=== PATIENT | female | born 1995 | race American Indian/Alaskan Native ===

== ENCOUNTER 2018-05-06 19:59 | Emergency (ER) | payer MEDICAID ==
[2018-05-06] MEDS ORDERED: DUONEB *Not for PRN Use IH ONE (20:13)
[2018-05-06 21:13] LABS: BUN/Creatinine Ratio 6; Blood Urea Nitrogen 5 mg/dL (7-17); Calcium 9.4 mg/dL (8.4-10.2); Hemolysis Index 0
[2018-05-06 21:16] LABS: Basophils # (Auto) 0.1 K/mm3 (0.0-0.1); Basophils % (Auto) 0.5 % (0.0-1.8); Eosinophils # (Auto) 0.1 K/mm3 (0.0-0.4); Eosinophils % (Auto) 0.7 % (0.0-4.3); Hematocrit 40.9 % (30.3-42.9); Hemoglobin 13.5 gm/dl (10.1-14.3); Lymphocytes # (Auto) 2.7 K/mm3 (1.2-5.4); Lymphocytes % (Auto) 16.4 % (13.4-35.0); Mean Corpuscular HGB Conc 33 % (30-34); Mean Corpuscular Hemoglobin 28 pg (28-32); Mean Corpuscular Volume 85 fl (79-97); Monocytes # (Auto) 1.9 K/mm3 (0.0-0.8); Monocytes % (Auto) 11.5 % (0.0-7.3); Platelet Count 352 K/mm3 (140-440); Red Cell Distribution Width 14.5 % (13.2-15.2)
[2018-05-06] MEDS ORDERED: XOPENEX IH ONE (21:33)
[2018-05-06] MEDS ORDERED: LEVAQUIN 750MG/150ML 750 MG/150 ML BAG IV ONE (21:33)
--- NOTE | 2018-05-06 21:41 | Emergency Department Report ---
ED Shortness of Breath HPI - General Chief Complaint: Dyspnea/Respdistress Stated Complaint: CHEST PAIN, YONG Time Seen by Provider: 05/06/18 21:21 Source: patient Mode of arrival: Ambulatory Limitations: No Limitations - History of Present Illness Initial Comments: Patient is 22 years old female history of asthma. Patient presented to the ER complaining of shortness of breath and wheezing for the last 2 weeks associated with his productive cough with greenish sputum and a low-grade fever. Patient denied any nausea or vomiting. No other complaint at this moment. MD Complaint: shortness of breath, cough - Related Data Allergies Allergy/AdvReac Type Severity Reaction Status Date / Time No Known Allergies Allergy Verified 05/06/18 20:07 ED Review of Systems ROS: Stated complaint: CHEST PAIN, YONG Other details as noted in HPI Comment: All other systems reviewed and negative Constitutional: fever. denies: chills Respiratory: cough, shortness of breath, SOB with exertion, wheezing Cardiovascular: chest pain. denies: palpitations, dyspnea on exertion, orthopnea Gastrointestinal: denies: abdominal pain, nausea, vomiting Neurological: denies: headache, weakness, numbness, paresthesias, confusion ED Past Medical Hx - Past Medical History Hx Asthma: Yes - Social History Smoking Status: Never Smoker Substance Use Type: None ED Physical Exam - General Limitations: No Limitations General appearance: alert, in distress (moderate respiratory distress) - Head Head exam: Present: atraumatic - Eye Eye exam: Present: normal appearance - ENT ENT exam: Present: normal exam, normal orophraynx, mucous membranes moist - Neck Neck exam: Present: normal inspection, full ROM. Absent: tenderness, meningismus, lymphadenopathy, thyromegaly - Respiratory Respiratory exam: Present: wheezes, rales, rhonchi, decreased breath sounds, prolonged expiratory - Cardiovascular Cardiovascular Exam: Present: tachycardia - GI/Abdominal GI/Abdominal exam: Present: soft, normal bowel sounds. Absent: distended, tenderness, guarding, rebound, rigid, organomegaly, mass, bruit, pulsatile mass , hernia - Extremities Exam Extremities exam: Present: normal inspection, full ROM, normal capillary refill - Back Exam Back exam: Present: normal inspection, full ROM. Absent: tenderness, CVA tenderness (L), muscle spasm, paraspinal tenderness, vertebral tenderness - Neurological Exam Neurological exam: Present: alert, oriented X3, CN II-XII intact, normal gait - Skin Skin exam: Present: dry, intact, normal color ED Course Vital Signs 05/06/18 05/06/18 05/06/18 19:58 20:07 21:27 Temperature 99.9 F H 99.9 F H Pulse Rate 129 H 120 H 103 H Pulse Rate [ Posterior] Respiratory 22 22 27 H Rate Respiratory Rate [Posterior ] Blood Pressure 114/87 114/87 Blood Pressure 120/91 [Left] O2 Sat by Pulse 92 92 96 Oximetry 05/06/18 05/06/18 05/06/18 21:30 21:45 22:00 Temperature Pulse Rate 102 H 106 H 99 H Pulse Rate [ 109 H Posterior] Respiratory 21 36 H 25 H Rate Respiratory 20 Rate [Posterior ] Blood Pressure 129/84 122/79 126/80 Blood Pressure [Left] O2 Sat by Pulse 97 95 96 Oximetry 05/06/18 05/06/18 05/06/18 22:15 22:30 22:45 Temperature Pulse Rate 106 H 116 H 116 H Pulse Rate [ Posterior] Respiratory 33 H 28 H 21 Rate Respiratory Rate [Posterior ] Blood Pressure 127/76 124/73 124/73 Blood Pressure [Left] O2 Sat by Pulse 95 97 95 Oximetry 05/06/18 05/06/18 05/06/18 23:00 23:15 23:30 Temperature Pulse Rate 113 H 111 H 110 H Pulse Rate [ Posterior] Respiratory 19 24 23 Rate Respiratory Rate [Posterior ] Blood Pressure 133/79 140/86 126/84 Blood Pressure [Left] O2 Sat by Pulse 97 97 99 Oximetry 05/07/18 05/07/18 05/07/18 00:00 00:15 00:30 Temperature Pulse Rate 112 H 104 H Pulse Rate [ Posterior] Respiratory 28 H 25 H Rate Respiratory Rate [Posterior ] Blood Pressure 129/84 125/76 129/77 Blood Pressure [Left] O2 Sat by Pulse 98 93 94 Oximetry 05/07/18 05/07/18 05/07/18 00:45 01:00 01:15 Temperature Pulse Rate 107 H 115 H 103 H Pulse Rate [ Posterior] Respiratory Rate Respiratory Rate [Posterior ] Blood Pressure 123/66 133/74 117/86 Blood Pressure [Left] O2 Sat by Pulse 94 96 96 Oximetry 05/07/18 05/07/18 05/07/18 01:30 01:45 02:01 Temperature Pulse Rate 99 H 105 H 96 H Pulse Rate [ Posterior] Respiratory Rate Respiratory Rate [Posterior ] Blood Pressure 112/67 114/69 114/69 Blood Pressure [Left] O2 Sat by Pulse 97 96 96 Oximetry - Reevaluation(s) Reevaluation #1: 05/07/18 02:58 Condition stated that she is feeling much better. No wheezing or shortness of breath. ED Medical Decision Making - Lab Data Result diagrams: 05/06/18 20:26 05/06/18 20:26 - EKG Data -: EKG Interpreted by Ks EKG shows normal: sinus rhythm Rate: tachycardia - EKG Data Interpretation: no acute changes - Radiology Data Radiology results: report reviewed Referring Physician: GEORGE JARVIS Patient Name: FADIA CUMMINS Date of : 1995 Sex: Female Report Date: 2018-05-06 Report Status: [place] [address] XRay Report Signed Patient: FADIA CUMMINS MR#: [id number] : 1995 Acct:[id number] Age/Sex: 22 / F ADM Date: 05/06/18 Loc: ED Attending Dr: Ordering Physician: GEORGE JARVIS Date of Service: 05/06/18 Procedure(s): XR chest routine 2V Accession Number(s): [id number] cc: GEORGE JARVIS Fluoro Time In Minutes: FINAL REPORT PROCEDURE: XR CHEST ROUTINE 2V TECHNIQUE: PA and lateral chest radiographs were obtained. CPT 33048 HISTORY: Shortness of breath COMPARISON: No prior studies are available for comparison. FINDINGS: Heart: Normal. Mediastinum/Vessels: Normal. Lungs/Pleural space: Normal. Bony thorax: No acute osseous abnormality. Other: IMPRESSION: Normal examination. Transcribed By: [facility] [place] Dictated By: KATERINE LI Electronically Authenticated By: KATERINE LI Signed Date/Time: 05/06/182221 DD/ 21 TD/TT: 05/06/182221 Critical care attestation.: If time is entered above; I have spent that time in minutes in the direct care of this critically ill patient, excluding procedure time. ED Disposition Clinical Impression: Asthmatic bronchitis, Shortness of breath, Hypokalemia Disposition: -01 TO HOME OR SELFCARE Is pt being admited?: No Condition: Stable Instructions: Chronic Bronchitis (ED) Referrals: PRIMARY CARE, [Primary Care Provider] - 3-5 Days
--- NOTE | 2018-05-06 22:27 | XRay Report ---
FINAL REPORT PROCEDURE: XR CHEST ROUTINE 2V TECHNIQUE: PA and lateral chest radiographs were obtained. CPT 83497 HISTORY: Shortness of breath COMPARISON: No prior studies are available for comparison. FINDINGS: Heart: Normal. Mediastinum/Vessels: Normal. Lungs/Pleural space: Normal. Bony thorax: No acute osseous abnormality. Other: IMPRESSION: Normal examination.
[2018-05-06] MEDS ORDERED: KCL 10MEQ/100ML 10 MEQ/100 ML BAG IV ONE (22:34)
[2018-05-07] MEDS ORDERED: NACL 0.9% 500 ML 500 ML ONE (00:07)
[2018-05-07] MEDS ORDERED: NACL 0.9% 500 ML 500 ML IV ONE (00:21)
[2018-05-07] MEDS: KCL 10MEQ/100ML 10 MEQ/100 ML BAG IV SCH ×2 (00:21→01:06)
[2018-05-07] MEDS ORDERED: NACL 0.9% 1000 ML 1,000 ML IV ONE (01:07)
[2018-05-07 03:12] VITALS: BP 116/78
== END 2018-05-07 03:12 | disposition home or self-care (01) ==
LOC: ED 19:59
DX: J45.909 Unspecified asthma, uncomplicated (principal); E87.5 Hyperkalemia
CPT/HCPCS: 36415; 71046; 80048; 84484; 84703; 85025; 87040; 93005; 93010; 94640; 96361; 96365; 96368; 96375; 99284; J1956; J2930; J3480; J7030; J7040

== ENCOUNTER 2018-08-01 09:58 | Emergency (ER) | payer MEDICAID ==
[2018-08-01 10:20] VITALS: BP 126/93
--- NOTE | 2018-08-01 11:01 | Emergency Department Report ---
ED Chest Pain HPI - General Chief Complaint: Chest Pain Stated Complaint: CHEST PAIN Time Seen by Provider: 08/01/18 10:51 Source: patient Mode of arrival: Ambulatory Limitations: No Limitations - History of Present Illness Initial Comments: Jaquelin is a 23 yo female with hx of asthma. Has had intermittent sharp chest pain for 2 weeks. Wanted to make sure her potassium level was okay. No pain now. Complaint: chest pain -: Gradual, week(s) (2) Onset: during rest Pain Location: substernal, left chest Pain Radiation: none Severity: mild Quality: sharp Consistency: intermittent, now resolved Improves With: nothing Worsens With: nothing Context: recent illness (seen in May with hypokalemia) - Related Data Previous Rx's Medication Instructions Recorded Last Taken Type ALBUTEROL Inhaler (OR & NICU) 2 puff IH QID PRN #1 inhalation 05/07/18 Unknown Rx [ProAir HFA Inhaler] Potassium Chloride [K-Dur] 10 meq PO QDAY #5 tablet 05/07/18 Unknown Rx Prednisone [predniSONE 10 mg 10 mg PO .TAPER #1 tab.ds.pk 05/07/18 Unknown Rx (6-Day Pack, 21 Tabs)] levoFLOXacin [Levaquin TAB] 500 mg PO QDAY #6 tablet 05/07/18 Unknown Rx Allergies Allergy/AdvReac Type Severity Reaction Status Date / Time No Known Allergies Allergy Verified 08/01/18 10:20 Heart Score - HEART Score History: Slightly suspicious EKG: Normal Age: < 45 Risk factors: No known risk factors Troponin: < normal limit HEART Score: 0 ED Review of Systems ROS: Stated complaint: CHEST PAIN Other details as noted in HPI Comment: All other systems reviewed and negative Constitutional: denies: fever, malaise Cardiovascular: chest pain. denies: palpitations ED Past Medical Hx - Past Medical History Previous Medical History?: Yes Hx Asthma: Yes - Surgical History Past Surgical History?: No - Social History Smoking Status: Never Smoker Substance Use Type: Alcohol - Medications Home Medications: Home Medications Medication Instructions Recorded Confirmed Last Taken Type ALBUTEROL Inhaler (OR & NICU) 2 puff IH QID PRN #1 inhalation 05/07/18 Unknown Rx [ProAir HFA Inhaler] Potassium Chloride [K-Dur] 10 meq PO QDAY #5 tablet 05/07/18 Unknown Rx Prednisone [predniSONE 10 mg 10 mg PO .TAPER #1 tab.ds.pk 05/07/18 Unknown Rx (6-Day Pack, 21 Tabs)] levoFLOXacin [Levaquin TAB] 500 mg PO QDAY #6 tablet 05/07/18 Unknown Rx ED Physical Exam - General Limitations: No Limitations General appearance: alert, in no apparent distress - Head Head exam: Present: atraumatic, normocephalic - Eye Eye exam: Present: normal appearance - ENT ENT exam: Present: mucous membranes moist - Neck Neck exam: Present: normal inspection. Absent: tenderness, meningismus - Respiratory Respiratory exam: Present: normal lung sounds bilaterally. Absent: respiratory distress, wheezes, rales, rhonchi - Cardiovascular Cardiovascular Exam: Present: regular rate, normal rhythm, normal heart sounds. Absent: bradycardia, tachycardia, systolic murmur, diastolic murmur, rubs, gallop - GI/Abdominal GI/Abdominal exam: Present: soft, normal bowel sounds. Absent: distended, tenderness, guarding, rebound - Extremities Exam Extremities exam: Present: normal inspection - Back Exam Back exam: Present: normal inspection - Neurological Exam Neurological exam: Present: alert, oriented X3 - Psychiatric Psychiatric exam: Present: normal affect, normal mood - Skin Skin exam: Present: warm, dry, intact, normal color. Absent: rash ED Course Vital Signs 08/01/18 10:18 Temperature 98.1 F Pulse Rate 65 Respiratory 18 Rate Blood Pressure 126/93 O2 Sat by Pulse 100 Oximetry ED Medical Decision Making - EKG Data -: EKG Interpreted by Me EKG shows normal: sinus rhythm, axis, intervals, QRS complexes, ST-T waves Rate: normal - EKG Data Interpretation: normal EKG 08/01/18 10:57 rate 60 bpm no signs of pericarditis - Medical Decision Making Ms. Juarez presents with sharp intermittent chest pain suggestive of ectopy such as PVCs ro chest wall pain. No indication of PNA, PE, PTX, ACS. PERC negative. Normal EKG with HR 60 bpm. I reviewed EMR and ED documentation from previous ED encounter May. Patient was being treated from asthma and fever. Receiving bronchodilator therapy with potassium level 2.7. Patient is currently symptom free. She just needed access for follow up. Urgent care center would not accept her insurance. I highly recommended full physical at our local clinic. I provided referral and potassium diet. Critical care attestation.: If time is entered above; I have spent that time in minutes in the direct care of this critically ill patient, excluding procedure time. ED Disposition Clinical Impression: Chest pain, Hx of hypokalemia Disposition: TO HOME OR SELFCARE Is pt being admited?: No Does the pt Need Aspirin: No Condition: Stable Instructions: Chest Pain (ED), Potassium Content of Foods List (ED), Hypokalemia (ED) Referrals: [facility] [Outside] - 3-5 Days Time of Disposition: 11:01
== END 2018-08-01 11:10 | disposition home or self-care (01) ==
LOC: ED 09:58
DX: R07.89 Other chest pain (principal); J45.909 Unspecified asthma, uncomplicated
CPT/HCPCS: 93005; 93010; 99282

== ENCOUNTER 2019-08-06 18:32 | Emergency (ER) | payer SELFPAY ==
--- NOTE | 2019-08-06 18:48 | Emergency Department Report ---
ED Abdominal Pain HPI - General Chief Complaint: Dyspnea/Respdistress Stated Complaint: SOB/YONG/DIRRHEA Source: patient Mode of arrival: Ambulatory Limitations: No Limitations - History of Present Illness Initial Comments: 24yo female states that she has diarrhea, SOB and chest discomfort x 2 days. She further states that she has a history of Asthma. - Related Data Previous Rx's Medication Instructions Recorded Last Taken Type ALBUTEROL Inhaler (OR & NICU) 2 puff IH QID PRN #1 inhalation 05/07/18 Unknown Rx [ProAir HFA Inhaler] Potassium Chloride [K-Dur] 10 meq PO QDAY #5 tablet 05/07/18 Unknown Rx Prednisone [predniSONE 10 mg 10 mg PO .TAPER #1 tab.ds.pk 05/07/18 Unknown Rx (6-Day Pack, 21 Tabs)] levoFLOXacin [Levaquin TAB] 500 mg PO QDAY #6 tablet 05/07/18 Unknown Rx Allergies Allergy/AdvReac Type Severity Reaction Status Date / Time No Known Allergies Allergy Verified 08/01/18 10:20 ED Review of Systems ROS: Stated complaint: SOB/YONG/DIRRHEA Other details as noted in HPI ED Past Medical Hx - Past Medical History Hx Asthma: Yes - Surgical History Past Surgical History?: No - Social History Smoking Status: Never Smoker Substance Use Type: Alcohol - Medications Home Medications: Home Medications Medication Instructions Recorded Confirmed Last Taken Type ALBUTEROL Inhaler (OR & NICU) 2 puff IH QID PRN #1 inhalation 05/07/18 Unknown Rx [ProAir HFA Inhaler] Potassium Chloride [K-Dur] 10 meq PO QDAY #5 tablet 05/07/18 Unknown Rx Prednisone [predniSONE 10 mg 10 mg PO .TAPER #1 tab.ds.pk 05/07/18 Unknown Rx (6-Day Pack, 21 Tabs)] levoFLOXacin [Levaquin TAB] 500 mg PO QDAY #6 tablet 05/07/18 Unknown Rx ED Physical Exam - General Limitations: No Limitations Critical care attestation.: If time is entered above; I have spent that time in minutes in the direct care of this critically ill patient, excluding procedure time. ED Disposition Condition: Stable
[2019-08-06 20:00] LABS: Basophils # (Auto) 0.1 K/mm3 (0.0-0.1); Basophils % (Auto) 0.4 % (0.0-1.8); Hematocrit 39.4 % (30.3-42.9); Hemoglobin 13.3 gm/dl (10.1-14.3); Lymphocytes # (Auto) 1.5 K/mm3 (1.2-5.4); Lymphocytes % (Auto) 9.6 % (13.4-35.0); Mean Corpuscular HGB Conc 34 % (30-34); Mean Corpuscular Volume 85 fl (79-97); Monocytes # (Auto) 1.7 K/mm3 (0.0-0.8); Monocytes % (Auto) 10.4 % (0.0-7.3); Platelet Count 220 K/mm3 (140-440); Red Blood Count 4.64 M/mm3 (3.65-5.03); Red Cell Distribution Width 14.3 % (13.2-15.2)
[2019-08-06] MEDS ORDERED: SODIUM CHLORIDE 0.9% 1000 ML 1,000 ML IV ONE (20:05)
[2019-08-06] MEDS ORDERED: methylPREDNISolone Sod Succinate 125 MG/2 ML INJ IV ONE (20:05)
[2019-08-06] MEDS ORDERED: IPRATROPIUM/ALBUTEROL SULFATE 3 ML AMPUL.NEB IH ONE (20:05)
[2019-08-06] MEDS ORDERED: ACETAMINOPHEN 500 MG TAB PO ONE (20:05)
[2019-08-06] MEDS ORDERED: IBUPROFEN 600 MG TAB PO ONE (20:06)
[2019-08-06 20:44] LABS: Amorphous Crystals,Urine Few; Bilirubin,Urine NEG (Negative); Blood,Urine SM (Negative); Color,Urine Amber (Yellow); Granular Casts,Urine 14 /LPF; Mucus,Urine 1+ /HPF; Protein,Urine >500 mg/dL (Negative); Urobilinogen,Urine < 2.0 mg/dL (<2.0)
[2019-08-06 21:05] LABS: Alanine Aminotransferase 22 units/L (7-56); Albumin 4.3 g/dL (3.9-5); BUN/Creatinine Ratio 5; Blood Urea Nitrogen 4 mg/dL (7-17); Calcium 9.1 mg/dL (8.4-10.2); Hemolysis Index 9
[2019-08-06] MEDS ORDERED: cefTRIAXone/NS 1 GM/50 ML 1 GM/50 ML BAG IV ONE (21:13)
[2019-08-06] MEDS ORDERED: POTASSIUM CHLORIDE ER 20 MEQ TAB PO ONE (21:13)
[2019-08-06] MEDS ORDERED: AZITHROMYCIN 250 MG TAB PO ONE (21:13)
[2019-08-06 21:35] LABS: HCG Qualitative,Urine Negative (Negative)
--- NOTE | 2019-08-06 22:05 | XRay Report ---
CHEST 2 VIEWS INDICATION / CLINICAL INFORMATION: chest discomfort. COMPARISON: 05/06/2018 FINDINGS: SUPPORT DEVICES: None. HEART / MEDIASTINUM: No significant abnormality. LUNGS / PLEURA: New slightly patchy opacities have developed in the right lower lung and left perihil ar region. These findings may represent developing airspace consolidation. No pneumothorax. ADDITIONAL FINDINGS: No significant additional findings. IMPRESSION: 1. New bilateral opacities are suspicious for acute airspace disease. Signer Name: Juan Bernal MD Signed: 08/06/2019 10:00 PM Workstation Name: [id number]
[2019-08-06 23:17] VITALS: BP 111/65
--- NOTE | 2019-08-06 23:22 | Emergency Department Report ---
- General Chief Complaint: Dyspnea/Respdistress Stated Complaint: SOB/YONG/DIRRHEA Source: patient Mode of arrival: Ambulatory Limitations: No Limitations - History of Present Illness Initial Comments: Patient is a 24-year-old -[place] female with a history of asthma who presents to the ED with complaint of acute onset persistent nasal and sinus congestion, dry cough, persistent wheezing and shortness of breath, intermittent fever of up to 101F, chills, lightheadedness, diffuse body aches and pains and generalized weakness for the last 5 days. Patient denies dizziness, syncope, chest pain, abdominal pain, vomiting, diarrhea, dysuria, urinary frequency and urgency or palpitations. Patient states that she has been using her inhaler intermittently with no relief. MD Complaint: fever, cough, sore throat, rhinorrhea, nasal congestion, sinus pain -: Sudden, days(s) (5) Severity: severe Severity scale (0 -10): 7 Quality: sharp, aching Consistency: constant Improves With: nothing Worsens With: nothing Context: sick contacts Associated Symptoms: denies other symptoms, fever, chills, myalgias, headache, rhinorrhea, nasal congestion, sore throat, cough, shortness of breath. denies: stiff neck, chest pain, abdominal pain, nausea, vomiting, diarrhea, dysuria, right sweats, ear pain Treatments Prior to Arrival: none - Related Data Previous Rx's Medication Instructions Recorded Last Taken Type ALBUTEROL Inhaler (OR & NICU) 2 puff IH QID PRN #1 inhalation 05/07/18 Unknown Rx [ProAir HFA Inhaler] Potassium Chloride [K-Dur] 10 meq PO QDAY #5 tablet 05/07/18 Unknown Rx Prednisone [predniSONE 10 mg 10 mg PO .TAPER #1 tab.ds.pk 05/07/18 Unknown Rx (6-Day Pack, 21 Tabs)] levoFLOXacin [Levaquin TAB] 500 mg PO QDAY #6 tablet 05/07/18 Unknown Rx ALBUTEROL Inhaler (OR & NICU) 1 - 2 puff IH Q6H PRN #1 inhalation 08/06/19 Unknown Rx [ProAir HFA Inhaler] Benzonatate [Tessalon Perles] 100 mg PO Q8HR #30 capsule 08/06/19 Unknown Rx Ibuprofen [Motrin] 800 mg PO Q8HR PRN #24 tablet 08/06/19 Unknown Rx Potassium Chloride [Klor-Con M15] 15 meq PO Q12H #10 tab.er.prt 08/06/19 Unknown Rx Prednisone [predniSONE 10 mg 10 mg PO .TAPER #21 tab.ds.pk 08/06/19 Unknown Rx (6-Day Pack, 21 Tabs)] levoFLOXacin [Levaquin] 750 mg PO DAILY #7 tablet 08/06/19 Unknown Rx Allergies Allergy/AdvReac Type Severity Reaction Status Date / Time No Known Allergies Allergy Verified 08/06/19 18:52 ED Review of Systems ROS: Stated complaint: SOB/YONG/DIRRHEA Other details as noted in HPI Constitutional: chills, fever, malaise Eyes: denies: eye pain, eye discharge, vision change ENT: throat pain, congestion. denies: ear pain Respiratory: cough, shortness of breath, wheezing Cardiovascular: denies: chest pain, palpitations Endocrine: no symptoms reported Gastrointestinal: denies: abdominal pain, nausea, diarrhea Genitourinary: denies: urgency, dysuria, discharge Musculoskeletal: denies: back pain, joint swelling, arthralgia Skin: denies: rash, lesions Neurological: denies: headache, weakness, paresthesias Psychiatric: denies: anxiety, depression Hematological/Lymphatic: denies: easy bleeding, easy bruising ED Past Medical Hx - Past Medical History Hx Asthma: Yes - Surgical History Past Surgical History?: No - Social History Smoking Status: Never Smoker Substance Use Type: Alcohol - Medications Home Medications: Home Medications Medication Instructions Recorded Confirmed Last Taken Type ALBUTEROL Inhaler (OR & NICU) 2 puff IH QID PRN #1 inhalation 05/07/18 Unknown Rx [ProAir HFA Inhaler] Potassium Chloride [K-Dur] 10 meq PO QDAY #5 tablet 05/07/18 Unknown Rx Prednisone [predniSONE 10 mg 10 mg PO .TAPER #1 tab.ds.pk 05/07/18 Unknown Rx (6-Day Pack, 21 Tabs)] levoFLOXacin [Levaquin TAB] 500 mg PO QDAY #6 tablet 05/07/18 Unknown Rx ALBUTEROL Inhaler (OR & NICU) 1 - 2 puff IH Q6H PRN #1 inhalation 08/06/19 Unknown Rx [ProAir HFA Inhaler] Benzonatate [Tessalon Perles] 100 mg PO Q8HR #30 capsule 08/06/19 Unknown Rx Ibuprofen [Motrin] 800 mg PO Q8HR PRN #24 tablet 08/06/19 Unknown Rx Potassium Chloride [Klor-Con M15] 15 meq PO Q12H #10 tab.er.prt 08/06/19 Unknown Rx Prednisone [predniSONE 10 mg 10 mg PO .TAPER #21 tab.ds.pk 08/06/19 Unknown Rx (6-Day Pack, 21 Tabs)] levoFLOXacin [Levaquin] 750 mg PO DAILY #7 tablet 08/06/19 Unknown Rx ED Physical Exam - General Limitations: No Limitations General appearance: alert, in no apparent distress - Head Head exam: Present: atraumatic, normocephalic, normal inspection - Eye Eye exam: Present: normal appearance, PERRL, EOMI Pupils: Present: normal accommodation - ENT ENT exam: Present: normal orophraynx, mucous membranes moist, TM's normal bilaterally, normal external ear exam, other (grossly congestion nasal passages) - Neck Neck exam: Present: normal inspection, full ROM - Respiratory Respiratory exam: Present: normal lung sounds bilaterally, wheezes (diffuse coarse wheezes throughout). Absent: respiratory distress, decreased breath sounds - Cardiovascular Cardiovascular Exam: Present: normal rhythm, tachycardia, normal heart sounds. Absent: systolic murmur, diastolic murmur, rubs, gallop - GI/Abdominal GI/Abdominal exam: Present: soft, normal bowel sounds. Absent: tenderness, guarding, rebound, hyperactive bowel sounds, hypoactive bowel sounds, organomegaly - Extremities Exam Extremities exam: Present: normal inspection, full ROM, normal capillary refill - Back Exam Back exam: Present: normal inspection, full ROM. Absent: tenderness, muscle spasm, paraspinal tenderness - Neurological Exam Neurological exam: Present: alert, oriented X3, CN II-XII intact, normal gait, r eflexes normal - Psychiatric Psychiatric exam: Present: normal affect, normal mood - Skin Skin exam: Present: warm, dry, intact, normal color. Absent: rash ED Course Vital Signs 08/06/19 08/06/19 18:39 23:16 Temperature 101 F H 98.9 F Pulse Rate 121 H 96 H Respiratory 18 17 Rate Blood Pressure 126/87 111/65 [Right] O2 Sat by Pulse 98 99 Oximetry - Reevaluation(s) Reevaluation #1: 08/06/19 23:25 This is a 24-year-old female with a history of asthma presented to the ED with nasal and sinus congestion, dry cough, wheezing, shortness of breath, persistent intermittent fever up to 101 for the last 5 days despite using her albuterol inhaler and nebulizers home. In the ED, patient is tachycardic, febrile, and in no acute distress. Patient received DuoNeb treatment in the ED, Solu Medrol an d also was treated for fever. Lab test results show acute leukocytosis of 16,000, acute hypokalemia of 2.9 mmol per liter, and urinary tract infection in urinalysis. Patient was treated in the ED with normal saline 1 L IV bolus 1, in addition to Rocephin 1 g IV and azithromycin 500 mg by mouth 1. Chest x-ray shows new bilateral opacities suspicious for acute airspace disease. On reevaluation, patient's wheezing resolved, fever also resolved as well as tachycardia. Patient was discharged home on antibiotics and pain medications and advised to follow-up with her primary care physician in 5-7 days for reevaluation or return to the ED immediately if symptoms get worse. 08/06/19 23:27 ED Medical Decision Making - Lab Data Result diagrams: 08/06/19 19:31 08/06/19 19:31 - Radiology Data Radiology results: report reviewed, image reviewed Findings [address] [address] XRay Report Signed Patient: FADIA CUMMINS MR#: [id number] : 1995 Acct:[id number] Age/Sex: 24 / F ADM Date: 08/06/19 Loc: ED Attending Dr: Ordering Physician: PARIS AVILA PA-C Date of Service: 08/06/19 Procedure(s): XR chest routine 2V Accession Number(s): [id number] cc: PARIS AVILA PA-C Fluoro Time In Minutes: CHEST 2 VIEWS INDICATION / CLINICAL INFORMATION: chest discomfort. COMPARISON: 05/06/2018 FINDINGS: SUPPORT DEVICES: None. HEART / MEDIASTINUM: No significant abnormality. LUNGS / PLEURA: New slightly patchy opacities have developed in the right lower lung and left perihilar region. These findings may represent developing airspace consolidation. No pneumothorax. ADDITIONAL FINDINGS: No significant additional findings. IMPRESSION: 1. New bilateral opacities are suspicious for acute airspace disease. Signer Name: Juan Bernal MD Signed: 08/06/2019 10:00 PM Workstation Name: [id number] Transcribed By: VIJAY Dictated By: Juan Bernal MD Electronically Authenticated By: Juan Bernal MD Signed Date/Time: 08/06/192199 DD/ 58 - Medical Decision Making This is a 24-year-old female with a history of asthma presented to the ED with nasal and sinus congestion, dry cough, wheezing, shortness of breath, persistent intermittent fever up to 101 for the last 5 days despite using her albuterol inhaler and nebulizers home. In the ED, patient is tachycardic, febrile, and in no acute distress. Patient received DuoNeb treatment in the ED, Solu Medrol and also was treated for fever. Lab test results show acute leukocytosis of 16,000, acute hypokalemia of 2.9 mmol per liter, and urinary tract infection in urinalysis. Patient was treated in the ED with normal saline 1 L IV bolus 1, in addition to Rocephin 1 g IV and azithromycin 500 mg by mouth 1. Chest x-ray shows new bilateral opacities suspicious for acute airspace disease. On reevaluation, patient's wheezing resolved, fever also resolved as well as tachycardia. Patient was discharged home on antibiotics and pain medications and advised to follow-up with her primary care physician in 5-7 days for reevaluation or return to the ED immediately if symptoms get worse. - Differential Diagnosis asthmatic bronchitis; pneumonia; acute URI; acute UTI Critical care attestation.: If time is entered above; I have spent that time in minutes in the direct care of this critically ill patient, excluding procedure time. ED Disposition Clinical Impression: Acute upper respiratory infection, Acute urinary tract infection, Acute hypokalemia Community acquired pneumonia Qualifiers: Laterality: unspecified laterality Qualified Code(s): J18.9 - Pneumonia, unspecified organism Disposition: - TO HOME OR SELFCARE Is pt being admited?: No Does the pt Need Aspirin: No Condition: Stable Instructions: Bacterial Pneumonia (ED), Community-acquired Pneumonia (ED), Upper Respiratory Infection (ED) Additional Instructions: Take medications with food, drink plenty of fluids and follow-up with your primary care physician in 5-7 days for reevaluation. Return to the ED immediately if symptoms get worse. Prescriptions: Potassium Chloride [Klor-Con M15] 15 meq PO Q12H #10 tab.er.prt levoFLOXacin [Levaquin] 750 mg PO DAILY #7 tablet Ibuprofen [Motrin] 800 mg PO Q8HR PRN #24 tablet PRN Reason: Fever >101 Prednisone [predniSONE 10 mg (6-Day Pack, 21 Tabs)] 10 mg PO .TAPER #21 tab.ds.pk ALBUTEROL Inhaler (OR & NICU) [ProAir HFA Inhaler] 1 - 2 puff IH Q6H PRN #1 inhalation PRN Reason: Shortness Of Breath Benzonatate [Tessalon Perles] 100 mg PO Q8HR #30 capsule Referrals: PRIMARY CARE, [Primary Care Provider] - 3-5 Days Forms: Work/School Release Form(ED) Time of Disposition: 23:19 Print Language: [place]
== END 2019-08-06 23:38 | disposition home or self-care (01) ==
LOC: ED 18:32
DX: J18.9 Pneumonia, unspecified organism (principal); J06.9 Acute upper respiratory infection, unspecified; J45.909 Unspecified asthma, uncomplicated; N39.0 Urinary tract infection, site not specified; E87.6 Hypokalemia
CPT/HCPCS: 36415; 71046; 80053; 81001; 81025; 85025; 87086; J0696; J2930; J7030; 96365; 96375